=== PATIENT | male | born 1985 | race Caucasian/White ===

== ENCOUNTER 2021-12-21 14:03 | Emergency (ER) | payer OTHER ==
[~2021-12-21] VITALS: Ht 172.7 cm; Wt 73.0 kg
[2021-12-21] MEDS ORDERED: SODIUM CHLORIDE 0.9% 1,000 ML IV ONE (17:45)
[2021-12-21 18:30] VITALS: BP 140/76
== END 2021-12-21 18:48 ==
LOC: EMS 14:05
DX: E86.0 Dehydration (principal)
CPT/HCPCS: 99283; Z7502